=== PATIENT | female | born 1965 | race Two or more races ===

== ENCOUNTER 2020-12-03 07:32 | Outpatient (CLI) | payer OTHER | END 2020-12-03 07:38 | disposition home or self-care (01) | LOC: NUCLEAR 07:32 | PROVIDERS: ATTEND Internal Medicine | DX: C50.512 Malignant neoplasm of lower-outer quadrant of left female breast (principal) | CPT/HCPCS: 78803; A9503 ==

== ENCOUNTER → 2022-06-22 | Outpatient (CLI) | payer OTHER | END | disposition home or self-care (01) | LOC: NUCLEAR 06-15 07:00 | PROVIDERS: ATTEND Family Medicine | DX: C50.911 Malignant neoplasm of unspecified site of right female breast (principal); C50.912 Malignant neoplasm of unspecified site of left female breast | CPT/HCPCS: 78816; A9552 ==

== ENCOUNTER 2024-12-12 07:17 | Outpatient (CLI) | payer OTHER | END 2024-12-12 07:18 | disposition home or self-care (01) | LOC: NUCLEAR 07:17 | PROVIDERS: ATTEND Family Medicine | DX: C50.512 Malignant neoplasm of lower-outer quadrant of left female breast (principal) ==